=== PATIENT | male | born 1960 | race Caucasian/White ===

== ENCOUNTER 2018-01-09 21:16 | Observation (INO) | payer OTHER ==
[~2018-01-09] VITALS: Ht 157.5 cm; Wt 82.2 kg
[2018-01-09] MEDS ORDERED: OPTIRAY 320 IV PRN (22:00)
[2018-01-09 22:19] LABS: BASO % 0.2 %; BASO ABS # 0.02 K/uL (0-0.2); EOS % 0.2 %; EOS ABS # 0.03 K/uL (0-0.5); HEMATOCRIT 47.5 % (42-52); HEMOGLOBIN 16.5 g/dL (14.0-18.0); IG# 0.02 K/uL (0.00-0.02); LYMPH % 12.7 %; LYMPH ABS # 1.65 K/uL (1.2-3.4); MEAN CELL VOLUME 88.5 fL (80-100); MEAN CORPUSCULAR HEMOGLOBIN 30.7 pg (25-34); MEAN CORPUSCULAR HGB CONC 34.7 g/dl (32-36); MEAN PLATELET VOLUME 11.9 fL (7.4-10.4); MONO % 4.4 %; MONO ABS # 0.57 K/uL (0.11-0.59); NEUT % 82.3 %; NEUT ABS # 10.71 K/uL (1.4-6.5); PLATELET COUNT 155 K/uL (130-400)
[2018-01-09] MEDS ORDERED: SODIUM CHLORIDE 0.9% 1000ML 1,000 ML IV STA (22:33)
[2018-01-09] MEDS ORDERED: KETOROLAC TROMETHAMINE 30 MG/ML VIAL IV STA (22:33)
[2018-01-09 22:38] LABS: ALBUMIN 4.2 gm/dl (3.4-5.0); CREATININE 0.93 mg/dl (0.60-1.40); POTASSIUM 3.8 mmol/L (3.5-5.1); TOTAL PROTEIN 8.1 gm/dl (6.4-8.2)
[2018-01-09] MEDS ORDERED: CEFOXITIN SOD 2 GM VIAL IV STA (23:50)
[2018-01-10] VITALS (7 sets, daily range): BP systolic 109–124; BP diastolic 64–72; PULSE 54–76; TEMP 36.6–37.3; O2SAT 93–94; Ht 157.5 cm; Wt 82.2 kg
[2018-01-10] MEDS ORDERED: BUPIVACAINE 0.5 % 5 MG/1 ML PF 10ML VIAL ONE (00:08)
--- NOTE | 2018-01-10 00:15 | History and Physical ---
History & Physical Date & Time of Service: Jan 10, 2018 at 00:10 Chief Complaint: Severe Abd Pain Primary Care Physician: No Doctor, Assigned History of Present Illness 57-year-old male presented with abdominal pain. Pain started at around 1500 this afternoon is diffuse periumbilical pain. He left work a few hours later the pain was increasing. He did have some nausea but no vomiting. He attempted to have a bowel movement which did not relieve his symptoms. Denies any fevers. He pushed on his abdomen and felt tenderness in his right lower quadrant decided to go to the ER after consulting the computer. He has never had a colonoscopy. He smokes 1 pack a day. No other medical history. Past Medical/Surgical History Medical Problems: (1) Contusion of right foot (2) Hepatitis C Family History Father with prostate cancer. Denies family history of inflammatory bowel disease or colorectal cancer. Social History Smoking Status: Current Every Day Smoker (1 pack per day) Allergies Coded Allergies: No Known Allergies (Unverified , 10/12/15) Home Medications No Active Prescriptions or Reported Meds Review of Systems 10 point review of systems negative except as above Physical Exam Vital Signs Date Time Temp Pulse Resp B/P (MAP) Pulse Ox O2 Delivery O2 Flow Rate FiO2 01/09/18 23:14 68 18 139/88 98 Room Air 01/09/18 22:28 67 18 146/85 97 Room Air 01/09/18 21:20 36.7 73 18 143/85 94 Room Air General Appearance: WD/WN, no apparent distress Head: normocephalic, atraumatic Eyes: normal inspection, PERRL, EOMI ENT: normal ENT inspection, hearing grossly normal, TMs normal Neck: supple, no adenopathy, thyroid normal Respiratory/Chest: chest non-tender, lungs clear, normal breath sounds, no respiratory distress, no accessory muscle use Cardiovascular: regular rate, rhythm, no edema, no gallop, no JVD, no murmur, normal peripheral pulses Abdomen/GI: normal bowel sounds, soft, no organomegaly, no pulsatile mass, + tenderness (Tender to palpation in the right lower quadrant with localized guarding. No rebound.) Back: normal inspection, no CVA tenderness, no muscle spasm Extremities/Musculoskelatal: normal inspection, no calf tenderness, normal capillary refill, no pedal edema, normal range of motion Neurologic/Psych: early childhood director II-XII nml as tested, no motor/sensory deficits, alert, normal mood/affect, normal reflexes, oriented x 3 Skin: normal color, warm/dry, no rash Lymphatic: no adenopathy Diagnostics Laboratory Results Results Past 24 Hours Test 01/09/18 21:40 01/09/18 21:44 Range/Units Urine Color YELLOW Urine Appearance CLEAR CLEAR Urine pH 6.5 4.5-7.5 Urine Specific [place] 1.021 1.000-1.030 Urine Protein NEG NEG Urine Glucose (UA) NEG NEG Urine Ketones 1+ NEG Urine Occult Blood NEG NEG Urine Nitrite NEG NEG Urine Bilirubin NEG NEG Urine Urobilinogen NEG NEG Urine Leukocyte Esterase NEG NEG Urine WBC (Auto) 1-5 0-5 /hpf Urine RBC (Auto) 0-4 0-4 /hpf Urine Hyaline Casts (Auto) 1-5 0-5 /lpf Urine Epithelial Cells (Auto) 0-5 0-5 /lpf Urine Bacteria (Auto) NEG NEG White Blood Count 13.00 4.8-10.8 K/uL Red Blood Count 5.37 4.7-6.1 M/uL Hemoglobin 16.5 14.0-18.0 g/dL Hematocrit 47.5 42-52 % Mean Corpuscular Volume 88.5 80-100 fL Mean Corpuscular Hemoglobin 30.7 25-34 pg Mean Corpuscular Hemoglobin Concent 34.7 32-36 g/dl Platelet Count 155 130-400 K/uL Mean Platelet Volume 11.9 7.4-10.4 fL Neutrophils (%) (Auto) 82.3 % Lymphocytes (%) (Auto) 12.7 % Monocytes (%) (Auto) 4.4 % Eosinophils (%) (Auto) 0.2 % Basophils (%) (Auto) 0.2 % Neutrophils # (Auto) 10.71 1.4-6.5 K/uL Lymphocytes # (Auto) 1.65 1.2-3.4 K/uL Monocytes # (Auto) 0.57 0.11-0.59 K/uL Eosinophils # (Auto) 0.03 0-0.5 K/uL Basophils # (Auto) 0.02 0-0.2 K/uL RDW Standard Deviation 42.0 36.4-46.3 fL RDW Coefficient of Variation 13.0 11.5-14.5 % Immature Granulocyte % (Auto) 0.2 % Immature Granulocyte # (Auto) 0.02 0.00-0.02 K/uL Sodium Level 137 136-145 mmol/L Potassium Level 3.8 3.5-5.1 mmol/L Chloride Level 104 98-107 mmol/L Carbon Dioxide Level 24 21-32 mmol/L Anion Gap 9.0 3-11 mmol/L Blood Urea Nitrogen 11 7-18 mg/dl Creatinine 0.93 0.60-1.40 mg/dl Est Creatinine Clear Calc Drug Dose 82.4 ml/min Estimated GFR () 106.0 Estimated GFR (Non- 91.4 BUN/Creatinine Ratio 12.3 10-20 Random Glucose 120 70-99 mg/dl Calcium Level 9.0 8.5-10.1 mg/dl Total Bilirubin 0.5 0.2-1 mg/dl Direct Bilirubin 0.1 0-0.2 mg/dl Aspartate Amino Transf (AST/SGOT) 44 15-37 U/L Alanine Aminotransferase (ALT/SGPT) 80 12-78 U/L Alkaline Phosphatase 80 45-117 U/L Total Protein 8.1 6.4-8.2 gm/dl Albumin 4.2 3.4-5.0 gm/dl Lipase 375 73-393 U/L Diagnostic Radiology CT scan shows acute nonperforated appendicitis with 1 cm appendix Impression Assessment and Plan (1) Acute appendicitis with localized peritonitis 57-year-old male with acute appendicitis plan for laparoscopic appendectomy Risks discussed to include but not limited to bleeding, infection, normal appendix, conversion to open, damage to surrounding structures, need for future more extensive surgery, and the risks of anesthesia Mefoxin 2 g IV preop Admit to [facility] floor for observation postop Diagnosis, details surgery and recovery, and plan of care discussed the patient , all questions were answered, the patient expressed understanding agrees the plan of care as stated ASA Classification: ASA Class II Resuscitation Status VTE Prophylaxis Will order VTE Prophylaxis: Yes
[2018-01-10] MEDS ORDERED: FENTANYL CITRATE INJ 50 MCG/1 ML 2 ML VIAL ONE (00:54)
[2018-01-10] MEDS ORDERED: MIDAZOLAM HCL 1 MG/ML 2ML VIAL ONE (00:54)
--- NOTE | 2018-01-10 01:15 | EMERGENCY ROOM VISIT NOTE ---
History Report prepared by Blakeibsylvain: Lucy Arellano Under the Supervision of: Dr. Suhail Chadwick D.O. First contact with patient: 21:31 Chief Complaint: ABDOMINAL PAIN Stated Complaint: SEVERE ABD PAIN History of Present Illness The patient is a 57 year old male who presents to the Emergency Room with complaints of constant abdominal pain beginning 6.5 hours ago. He notes he experiences a sharp pain when pressing on his abdomen. The patient states his abdomen is bloated, and notes he vomited twice, which relieved his pain slightly. He denies pain or burning with urination, cough, or runny nose. The patient reports nothing except vomiting relieves his pain. He states his last bowel movement was this evening, but it "wasn't right." The patient denies a history of abdominal surgeries. Source of History: patient Onset: 6.5 hours ago Position: abdomen Quality: other (sharp) Timing: constant Modifying Factors (Relieving): other (vomiting) Associated Symptoms: + vomiting (twice), No cough, No urinary symptoms Note: Associated symptom: abdomen bloating. Denies: runny nose Review of Systems See HPI for pertinent positives & negatives. A total of 10 systems reviewed and were otherwise negative. Past Medical & Surgical Medical Problems: (1) Acute appendicitis with localized peritonitis (2) Hepatitis C Contusion of right foot Family History No pertinent family history stated. Social History Smoking Status: Current Every Day Smoker Current/Historical Medications No Active Prescriptions or Reported Meds Allergies Coded Allergies: No Known Allergies (Unverified , 10/12/15) Physical Exam Vital Signs Date Time Temp Pulse Resp B/P (MAP) Pulse Ox O2 Delivery O2 Flow Rate FiO2 01/10/18 00:44 68 18 134/79 95 01/10/18 00:41 68 18 134/79 95 Room Air 01/09/18 23:14 68 18 139/88 98 Room Air 01/09/18 22:28 67 18 146/85 97 Room Air 01/09/18 21:20 36.7 73 18 143/85 94 Room Air Physical Exam GENERAL: Sitting up in bed, alert, well appearing, well nourished, no distress, non-toxic EYE EXAM: normal conjunctiva. OROPHARYNX: no exudate, no erythema, lips, buccal mucosa, and tongue normal and mucous membranes are moist NECK: supple, no nuchal rigidity, no adenopathy, non-tender LUNGS: Clear to auscultation. Normal chest wall mechanics HEART: no murmurs, S1 normal and S2 normal ABDOMEN: abdomen soft, normo-active bowel sounds, no masses, no rebound or guarding. Tender to palpation infraumbilically. BACK: Back is symmetrical on inspection and there is no deformity, no midline tenderness, no CVA tenderness. SKIN: no rashes and no bruising UPPER EXTREMITIES: upper extremities are grossly normal. LOWER EXTREMITIES: No pitting edema. : Normal external genitalia, testicles nontender. NEURO EXAM: Normal sensorium, cranial nerves II-XII grossly intact, normal speech, no gross weakness of arms, no gross weakness of legs. Medical Decision & Procedures ER Provider Diagnostic Interpretation: Radiology results as stated below per my review: ABDOMEN/PELVIS W/IV Contrast Acute appendicitis Laboratory Results 01/09/18 21:44 Red Blood Count 5.37, Mean Corpuscular Volume 88.5, Mean Corpuscular Hemoglobin 30.7, Mean Corpuscular Hemoglobin Concent 34.7, Mean Platelet Volume 11.9, Neutrophils (%) (Auto) 82.3, Lymphocytes (%) (Auto) 12.7, Monocytes (%) (Auto) 4.4, Eosinophils (%) (Auto) 0.2, Basophils (%) (Auto) 0.2, Neutrophils # (Auto) 10.71, Lymphocytes # (Auto) 1.65, Monocytes # (Auto) 0.57, Eosinophils # (Auto) 0.03, Basophils # (Auto) 0.02 01/09/18 21:44 Test 01/09/18 21:40 01/09/18 21:44 Urine Color YELLOW Urine Appearance CLEAR (CLEAR) Urine pH 6.5 (4.5-7.5) Urine Specific [place] 1.021 (1.000-1.030) Urine Protein NEG (NEG) Urine Glucose (UA) NEG (NEG) Urine Ketones 1+ (NEG) Urine Occult Blood NEG (NEG) Urine Nitrite NEG (NEG) Urine Bilirubin NEG (NEG) Urine Urobilinogen NEG (NEG) Urine Leukocyte Esterase NEG (NEG) Urine WBC (Auto) 1-5 /hpf (0-5) Urine RBC (Auto) 0-4 /hpf (0-4) Urine Hyaline Casts (Auto) 1-5 /lpf (0-5) Urine Epithelial Cells (Auto) 0-5 /lpf (0-5) Urine Bacteria (Auto) NEG (NEG) White Blood Count 13.00 K/uL (4.8-10.8) Red Blood Count 5.37 M/uL (4.7-6.1) Hemoglobin 16.5 g/dL (14.0-18.0) Hematocrit 47.5 % (42-52) Mean Corpuscular Volume 88.5 fL (80-100) Mean Corpuscular Hemoglobin 30.7 pg (25-34) Mean Corpuscular Hemoglobin Concent 34.7 g/dl (32-36) Platelet Count 155 K/uL (130-400) Mean Platelet Volume 11.9 fL (7.4-10.4) Neutrophils (%) (Auto) 82.3 % Lymphocytes (%) (Auto) 12.7 % Monocytes (%) (Auto) 4.4 % Eosinophils (%) (Auto) 0.2 % Basophils (%) (Auto) 0.2 % Neutrophils # (Auto) 10.71 K/uL (1.4-6.5) Lymphocytes # (Auto) 1.65 K/uL (1.2-3.4) Monocytes # (Auto) 0.57 K/uL (0.11-0.59) Eosinophils # (Auto) 0.03 K/uL (0-0.5) Basophils # (Auto) 0.02 K/uL (0-0.2) RDW Standard Deviation 42.0 fL (36.4-46.3) RDW Coefficient of Variation 13.0 % (11.5-14.5) Immature Granulocyte % (Auto) 0.2 % Immature Granulocyte # (Auto) 0.02 K/uL (0.00-0.02) Anion Gap 9.0 mmol/L (3-11) Est Creatinine Clear Calc Drug Dose 82.4 ml/min Estimated GFR () 106.0 Estimated GFR (Non- 91.4 BUN/Creatinine Ratio 12.3 (10-20) Calcium Level 9.0 mg/dl (8.5-10.1) Total Bilirubin 0.5 mg/dl (0.2-1) Direct Bilirubin 0.1 mg/dl (0-0.2) Aspartate Amino Transf (AST/SGOT) 44 U/L (15-37) Alanine Aminotransferase (ALT/SGPT) 80 U/L (12-78) Alkaline Phosphatase 80 U/L (45-117) Total Protein 8.1 gm/dl (6.4-8.2) Albumin 4.2 gm/dl (3.4-5.0) Lipase 375 U/L (73-393) Laboratory results per my review. Medications Administered Medications (Trade) Dose Ordered Sig/Ivanna Route Start Time Stop Time Status Last Admin Dose Admin Sodium Chloride 1,000 ml @ 999 mls/hr Q1H1M STAT IV 01/09/18 22:33 01/09/18 23:33 DC 01/09/18 23:15 999 MLS/HR Ketorolac Tromethamine (Toradol Inj) 30 mg NOW STAT IV 01/09/18 22:33 01/09/18 22:34 DC 01/09/18 23:14 30 MG Cefoxitin Sodium (Mefoxin IV) 2,000 mg NOW STAT IV 01/09/18 23:50 01/09/18 23:52 DC 01/09/18 23:57 2,000 MG ED Course ED COURSE: Vital signs were reviewed and showed situational hypertension. The patients medical record was reviewed The above diagnostic studies were performed and reviewed. ED treatments and interventions as stated above. 2137: The patient was evaluated in room A2. A complete history and physical examination was performed. 2233: Ordered Toradol Inj 30 mg IV, Sodium Chloride 1000 ml @ 999 mls/hr IV, Cefoxtin Sodium 2000 mg IV. 2345: I reviewed the patient's case with Dr. Vizcarra, [facility] surgeon. He will evaluate the patient for further management. 2351: Upon reevaluation, the patient is resting. I discussed my findings with the patient and he understands and agrees with the treatment plan. Based on the patients age, coexisting illnesses, exam and lab findings the decision to treat as an inpatient was made. The patient remained stable while under my care. The patient will be evaluated for further management. Medical Decision Differential diagnoses includes but is not limited to gastritis, peptic ulcer disease, GERD, gallbladder disease, pancreatitis, small bowel obstruction, acute coronary syndrome, pericarditis, ischemic bowel, irritable bowel disease, irritable bowel syndrome, appendicitis, diverticulitis, malignancy, hernia, urinary tract infection, torsion, perforation, trauma, infectious. Patient is a 57-year-old male who presents to ER for infraumbilical abdominal pain. He is minimally tender on exam. Labs show a mild leukocytosis of 13, 000. BMP along with LFTs, bilirubin lipase is unremarkable. UA was negative. CT shows acute appendicitis. Discussed with general surgery. Patient was given IV antibiotics and fluids. He was admitted to general surgery for acute appendicitis. He was also given IV Toradol. Medication Reconcilliation Current Medication List: was personally reviewed by me Blood Pressure Screening Patient's blood pressure: Elevated blood pressure Blood pressure disposition: Did not require urgent referral Consults Time Called: 2343 Consulting Physician: Dr. Vizcarra, [facility] surgeon Returned Call: 2 I reviewed the patient's case with Dr. Vizcarra, [facility] surgeon. He will evaluate the patient for further management. Impression Primary Impression: Acute appendicitis Scribe Attestation The scribe's documentation has been prepared under my direction and personally reviewed by me in its entirety. I confirm that the note above accurately reflects all work, treatment, procedures, and medical decision making performed by me. Departure Information Dispostion Being Evaluated By Surgeon Prescriptions No Active Prescriptions or Reported Meds Referrals No Doctor, Assigned (PCP) Patient Instructions My [facility] Problem Qualifiers Primary Impression: Acute appendicitis Acute appendicitis type: with localized peritonitis Qualified Codes: K35.3 - Acute appendicitis with localized peritonitis
[2018-01-10] MEDS ORDERED: ONDANSETRON INJ 2 MG/ML 2 ML VIAL IV PRN ×2 (01:45→02:45)
[2018-01-10] MEDS ORDERED: ATROPINE SULFATE 0.1 MG/ML 5ML SYR IV PRN (01:45)
[2018-01-10] MEDS ORDERED: HYDROmorphone INJ 1 MG/ML SYR IV PRN (01:45)
[2018-01-10] MEDS ORDERED: EpHEDrine SULFATE INJ 50 MG/ML AMP IV PRN (01:45)
[2018-01-10] MEDS ORDERED: FENTANYL CITRATE INJ 50 MCG/1 ML 2 ML VIAL IV PRN (01:45)
[2018-01-10] MEDS ORDERED: ONDANSETRON INJ 2 MG/ML 2 ML VIAL ONE (02:18)
[2018-01-10] MEDS ORDERED: DEXAMETHASONE SOD INJ 4 MG/ML VIAL ONE (02:18)
[2018-01-10] MEDS ORDERED: PROPOFOL IV EMULSION 10 MG/ML 20 ML VIAL ONE (02:19)
[2018-01-10] MEDS ORDERED: ALBUTEROL HFA INHALER 8.5 GM INH ONE (02:19)
[2018-01-10] MEDS ORDERED: GLYCOPYRROLATE INJ 0.2 MG/ML VIAL ONE (02:19)
[2018-01-10] MEDS ORDERED: NEOSTIGMINE METHYLSULFATE 5 MG/5 ML SYR ONE (02:19)
[2018-01-10] MEDS ORDERED: ROCURONIUM BROMIDE 10 MG/ML 5 ML VIAL ONE (02:19)
[2018-01-10] MEDS ORDERED: SUCCINYLCHOLINE CHLORIDE 20 MG/ML 10 ML VIAL IV ONE (02:19)
--- NOTE | 2018-01-10 02:36 | [facility] Post Operative Brief Note ---
Immediate Operative Summary Operative Date Jan 10, 2018. Pre-Operative Diagnosis Acute appendicitis Post-Operative Diagnosis Same Procedure(s) Performed Laparoscopic appendectomy Surgeon Dr Vizcarra Well Digger Surgeon(s) Max Quarles PA-C Estimated Blood Loss 3ML Findings Consistent with Post-Op Diagnosis Acute, nonperforated appendicitis Specimens A. appendix Drains None Anesthesia Type General Complication(s) none Disposition Accompanied Pt To Recover: no Disposition: Recovery Room / PACU
--- NOTE | 2018-01-10 02:38 | [facility] Operative Report ---
Operative Report Operative Date Jan 10, 2018. Pre-Operative Diagnosis Acute appendicitis Post-Operative Diagnosis Same Procedure(s) Performed Laparoscopic appendectomy Surgeon Dr Vizcarra Quality Analyst/Technical Writer Surgeon(s) Max Quarles PA-C Estimated Blood Loss 3ML Findings Acute, nonperforated appendicitis Specimens A. appendix Drains None Anesthesia General Complication(s) None Disposition Recovery Room / PACU Indications 57-year-old male with signs and symptoms of acute appendicitis confirmed by CT scan, plan for laparoscopic appendectomy. The risks of the procedure were discussed, all questions were answered, and the patient agreed to proceed with surgery as planned. Description of Procedure The patient was properly identified, consented, and taken to the operating room where he was placed in the supine position. General endotracheal anesthesia was induced. SCDs and a safety belt were placed. Preoperative antibiotics were administered. A Weeks catheter was not placed. The patient's abdomen was prepped and draped in the standard sterile fashion. Surgical timeout was performed and all parties were in agreement that this was the correct patient and procedure to be performed and we continued as planned. A curvilinear infraumbilical incision was made with electrocautery and deepened down to the fascia with blunt dissection. The base of the umbilicus was grasped with a Rojelio and elevated towards the ceiling. An incision was made in the midline fascia with a knife and entry into the peritoneum was confirmed. Stay suture of 0 Vicryl was placed and a Javier trocar was inserted. The abdomen was insufflated with carbon dioxide which the patient tolerated without incident. The laparoscope was inserted and no damage from initial trocar placement was noted, no gross abnormalities were noted within the 4 quadrants the abdomen. 5 mm ports were then placed in the left lower quadrant with care not to damage the epigastric vessels, and in the suprapubic midline with care not to damage the bladder. The patient was placed in Trendelenburg position and rotated towards the left. The small bowel was swept away from the right lower quadrant. The cecum was grasped with an atraumatic grasper exposing the appendix. The appendix was mildly inflamed and very dilated but there was no evidence of perforation. There was no fluid in the pelvis. A window was created between the base of the appendix and the mesoappendix. A jaeger loaded endoscopic stapler was then used to divide the appendix at its base. A jaeger load was then used to divide the mesoappendix. Hemostasis was good. The appendix was placed in an Endo Catch bag and removed through the umbilical port site. The right lower quadrant and pelvis was irrigated and hemostasis was found to be good. 5 mm trochars were removed under direct visualization and the abdomen was allowed to collapse. The umbilical port site fascia was closed with 0 Vicryl suture. The wound was irrigated, and the skin of all ports was closed with 4-0 Monocryl subcuticular sutures. Dermabond was placed over the wounds. The patient was extubated in the operating room and taken to the PACU where he recovered without apparent incident. All sponge, instrument and needle counts were correct at the conclusion of the procedure. The patient tolerated the procedure well. The physician's marketing operations assistant was present and scrubbed for the entire to the case. He was critical in positioning the patient, prepping and draping, retraction and exposure, driving the laparoscope, closure the incisions, and placement of the dressings. I attest to the content of the Intraoperative Record and any orders documented therein. Any exceptions are noted below.
[2018-01-10] MEDS ORDERED: ACETAMINOPHEN 325 MG TAB PO PRN (02:45)
[2018-01-10] MEDS ORDERED: MoRPHine SULFATE 4 MG/ML 1 ML CARP\\VIAL IV PRN (02:45)
[2018-01-10] MEDS ORDERED: OXYCODONE/ACETAMINOPHEN 5-325 TAB PO PRN ×2 (02:45)
[2018-01-10] MEDS ORDERED: MoRPHine SULFATE 2 MG/ML CARP IV PRN (02:45)
--- NOTE | 2018-01-10 03:12 | Anesthesiology Progress Note ---
Anesthesia Post Op Note Date & Time Jan 10, 2018 at 03:12 Vital Signs Pain Intensity: 5.0 Vital Signs Past 12 Hours Date Time Temp Pulse Resp B/P (MAP) Pulse Ox O2 Delivery O2 Flow Rate FiO2 01/10/18 00:44 68 18 134/79 95 01/10/18 00:41 68 18 134/79 95 Room Air 01/09/18 23:14 68 18 139/88 98 Room Air 01/09/18 22:28 67 18 146/85 97 Room Air 01/09/18 21:20 36.7 73 18 143/85 94 Room Air Notes Mental Status: alert / awake / arousable, participated in evaluation Pt Amnestic to Procedure: Yes Nausea / Vomiting: adequately controlled Pain: adequately controlled Airway Patency, RR, SpO2: stable & adequate BP & HR: stable & adequate Hydration State: stable & adequate Anesthetic Complications: no major complications apparent
[2018-01-10] MEDS ORDERED: IV FLUIDS COMPLETED PRN (04:30)
[2018-01-10] MEDS ORDERED: KETOROLAC TROMETHAMINE 15 MG/ML VIAL IV. SCH (06:00)
[2018-01-10] MEDS ORDERED: CEFOXITIN IV 2,000 MG in DEXTROSE 5% 50ML 50 ML IV SCH (06:00)
--- NOTE | 2018-01-10 06:36 | DIAGNOSTIC IMAGING REPORT ---
ABD/PELVIS IV CONTRAST ONLY CT DOSE: 608.57 mGy.cm HISTORY: Pain rlq abd pain TECHNIQUE: Multiaxial CT images of the abdomen and pelvis were performed following the use of intravenous contrast. A dose lowering technique was utilized adhering to the principles of ALARA. COMPARISON STUDY: None. FINDINGS: Lung bases are clear. There are 2 right renal cyst. The kidneys are negative for hydronephrosis. Bowel pattern is nonobstructive. The appendix is distended and contains an appendicolith. Maximum diameter is 1 cm. Appendicolith measures 6 mm at maximum. No evidence for abscess collection or obstruction. Mild chronic sigmoid diverticulosis. IMPRESSION: 1. Acute appendicitis. 2. Appendiceal diameter is 1 cm with a 6 mm appendicolith. 3. No evidence for abscess collection or obstruction. 4. Chronic sigmoid diverticulosis. The above report was generated using voice recognition software. It may contain grammatical, syntax or spelling errors. Electronically signed by: Vijay Oseguera M.D. 01/10/2018 6:35 AM Dictated Date/Time: 01/10/2018 6:31 AM
[2018-01-10] MEDS ORDERED: OXYC-57 PO (07:31)
--- NOTE | 2018-01-10 07:34 | Discharge Instructions ---
Discharge Instructions Date of Service Jan 10, 2018. Admission Reason for Admission: Acute Appendicitis With Localized Peritonitis Discharge Discharge Diagnosis / Problem: Acute Appendicitis with Localized Peritonitis Discharge Goals Goal(s): Decrease discomfort, Improve function Activity Recommendations Activity Limitations: as noted below Lifting Limitations: no more than 10 pounds Exercise/Sports Limitations: until after follow-up appointment May Resume Sexual Activity: after follow-up appointment Shower/Bathe: no limitations Driving or Machine Use: resume 1 day after discharge . Instructions / Follow-Up Instructions / Follow-Up You may shower, but please do not soak or scrub your incisions. Please follow-up with Dr. Vizcarra in the General Surgery Clinic located at [address] [place], [place] [address] [address] in 1-2 weeks. Please call the clinic at [phone] to schedule this appointment. Please call the clinic with any questions or concerns. Current Hospital Diet Patient's current hospital diet: Clear Liquid Diet Discharge Diet Recommended Diet: Regular Diet Procedures Procedures Performed: Laparoscopic appendectomy Pending Studies Studies pending at discharge: yes List of pending studies: Pathology report. Medical Emergencies . Who to Call and When: Medical Emergencies: If at any time you feel your situation is an emergency, please call 911 immediately. . Non-Emergent Contact Non-Emergency issues call your: Primary Care Provider, Surgeon Call Non-Emergent contact if: temperature is above 101.5, your pain is not controlled, wound has increased drainage, wound has increased redness . "Provider Documentation" section prepared by Liberty Harrison. .
--- NOTE | 2018-01-10 08:21 | Surgery Progress Note ---
Surgery Progress Note Date of Service Jan 10, 2018. Subjective Post OP Day: 1 + feeling well, + ambulating, + pain controlled, No bowel movement, No flatus, No nausea, No vomiting Doing well, "Hungry" Objective Vital Signs: Date Time Temp Pulse Resp B/P (MAP) Pulse Ox O2 Delivery O2 Flow Rate FiO2 01/10/18 08:01 36.7 63 20 124/64 (84) 94 Room Air 01/10/18 05:50 37.3 76 18 117/66 (83) 93 Room Air 01/10/18 04:52 36.7 66 16 116/68 (84) 94 Room Air 01/10/18 04:20 36.6 54 15 117/70 (86) 94 Room Air 01/10/18 03:50 36.6 56 15 109/69 (82) 93 Room Air 01/10/18 03:50 94 Room Air 01/10/18 03:50 36.8 67 16 122/72 Room Air 94 01/10/18 03:40 66 20 124/67 96 Room Air Oxymask 01/10/18 03:35 36.8 60 20 113/79 94 Room Air Oxymask 01/10/18 03:30 60 20 116/67 96 Room Air Oxymask 01/10/18 03:25 66 16 124/70 96 Oxymask 4 01/10/18 03:20 37.1 60 16 111/71 97 Oxymask 4 01/10/18 03:15 65 16 117/68 94 Oxymask 6 01/10/18 03:10 71 16 119/67 96 Oxymask 8 01/10/18 03:05 96 16 135/79 98 Oxymask 8 01/10/18 03:00 91 16 125/75 98 Oxymask 10 01/10/18 02:57 36.9 16 137/85 100 Oxymask 10 01/10/18 00:44 68 18 134/79 95 01/10/18 00:41 68 18 134/79 95 Room Air 01/09/18 23:14 68 18 139/88 98 Room Air 01/09/18 22:28 67 18 146/85 97 Room Air 01/09/18 21:20 36.7 73 18 143/85 94 Room Air General Appearance: WD/WN, no apparent distress Head: normocephalic, atraumatic Abdomen: non distended, soft, + pertinent finding (3 incisions with dermabond in place- clean, dry, intact. ) Laboratory Results: Results Past 24 Hours Test 01/09/18 21:40 01/09/18 21:44 Range/Units Urine Color YELLOW Urine Appearance CLEAR CLEAR Urine pH 6.5 4.5-7.5 Urine Specific [place] 1.021 1.000-1.030 Urine Protein NEG NEG Urine Glucose (UA) NEG NEG Urine Ketones 1+ NEG Urine Occult Blood NEG NEG Urine Nitrite NEG NEG Urine Bilirubin NEG NEG Urine Urobilinogen NEG NEG Urine Leukocyte Esterase NEG NEG Urine WBC (Auto) 1-5 0-5 /hpf Urine RBC (Auto) 0-4 0-4 /hpf Urine Hyaline Casts (Auto) 1-5 0-5 /lpf Urine Epithelial Cells (Auto) 0-5 0-5 /lpf Urine Bacteria (Auto) NEG NEG White Blood Count 13.00 4.8-10.8 K/uL Red Blood Count 5.37 4.7-6.1 M/uL Hemoglobin 16.5 14.0-18.0 g/dL Hematocrit 47.5 42-52 % Mean Corpuscular Volume 88.5 80-100 fL Mean Corpuscular Hemoglobin 30.7 25-34 pg Mean Corpuscular Hemoglobin Concent 34.7 32-36 g/dl Platelet Count 155 130-400 K/uL Mean Platelet Volume 11.9 7.4-10.4 fL Neutrophils (%) (Auto) 82.3 % Lymphocytes (%) (Auto) 12.7 % Monocytes (%) (Auto) 4.4 % Eosinophils (%) (Auto) 0.2 % Basophils (%) (Auto) 0.2 % Neutrophils # (Auto) 10.71 1.4-6.5 K/uL Lymphocytes # (Auto) 1.65 1.2-3.4 K/uL Monocytes # (Auto) 0.57 0.11-0.59 K/uL Eosinophils # (Auto) 0.03 0-0.5 K/uL Basophils # (Auto) 0.02 0-0.2 K/uL RDW Standard Deviation 42.0 36.4-46.3 fL RDW Coefficient of Variation 13.0 11.5-14.5 % Immature Granulocyte % (Auto) 0.2 % Immature Granulocyte # (Auto) 0.02 0.00-0.02 K/uL Sodium Level 137 136-145 mmol/L Potassium Level 3.8 3.5-5.1 mmol/L Chloride Level 104 98-107 mmol/L Carbon Dioxide Level 24 21-32 mmol/L Anion Gap 9.0 3-11 mmol/L Blood Urea Nitrogen 11 7-18 mg/dl Creatinine 0.93 0.60-1.40 mg/dl Est Creatinine Clear Calc Drug Dose 82.4 ml/min Estimated GFR () 106.0 Estimated GFR (Non- 91.4 BUN/Creatinine Ratio 12.3 10-20 Random Glucose 120 70-99 mg/dl Calcium Level 9.0 8.5-10.1 mg/dl Total Bilirubin 0.5 0.2-1 mg/dl Direct Bilirubin 0.1 0-0.2 mg/dl Aspartate Amino Transf (AST/SGOT) 44 15-37 U/L Alanine Aminotransferase (ALT/SGPT) 80 12-78 U/L Alkaline Phosphatase 80 45-117 U/L Total Protein 8.1 6.4-8.2 gm/dl Albumin 4.2 3.4-5.0 gm/dl Lipase 375 73-393 U/L Assessment & Plan POD #1 S/P Lap Appendectomy wit Dr. Vizcarra. Patient doing well this AM- pain controlled, denies nausea or vomiting. Tolerated clear diet overnight and hungry for regular food. Will advance diet and see how he tolerates. Ok for discharge later this AM if he tolerates breakfast. Return precautions given. Patient to follow-up in Gen Surg clinic in 1 week.
--- NOTE | 2018-01-13 00:26 | Discharge Summary ---
Discharge Summary Date of Service Jan 13, 2018. Admission Date/Reason Jan 10, 2018 at 02:42 Acute Appendicitis With Localized Peritonitis. Discharge Date/Disposition Jan 10, 2018 Home Diagnosis Principal Diagnosis: Acute Appendicitis Procedure(s) Performed Laparoscopic appendectomy Medication Reconciliation Percocet 5mg/325mg 1-2 Tablets PO Q6H PRN for pain x 3 days. Disp: 24 Tablets. Admission Physical Exam As per Admitting History & Physical. Hospital Course 01/10/18: Patient presented early this morning due to RLQ and periumbilical pain starting earlier in the afternoon. Reported associated nausea but no vomiting. WBC 13k. CT showed findings significant for acute appendicitis. At this time it was decided to take patient to the OR for laparoscopic appendectomy, possible open. Pre-op antibiotics given, consents signed. The procedure was performed successfully with a laparoscopic approach without complications. The patient was taken to the ICU for post-op recovery and then admitted to med/surg on observation for post-op care. Patient was discharged later this afternoon once his pain was controlled, he was urinating and he was tolerating a diet. Return precautions given. Patient given instructions on wound care and limitations. He was given a prescription for percocet to take as needed for pain relief. Patient will follow-up with Dr. Vizcarra in the general surgery clinic in 1-2 weeks. Patient invited to contact our office with any questions or concerns. Discharge Instructions Please refer to the electronic Patient Visit Report (Discharge Instructions) for additional information.
== END 2018-01-10 10:40 | disposition home or self-care (01) ==
LOC: C.EDB 21:18 → C.MSN 01-10 02:42 → ENRESERV 01-10 03:18
PROVIDERS: ADMIT Surgery; ATTEND Surgery
DX: K35.3 Acute appendicitis with localized peritonitis (principal); F17.200 Nicotine dependence, unspecified, uncomplicated

== ENCOUNTER 2022-01-14 11:26 | Inpatient (IN) ==
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
[2022-01-14 12:27] LABS: Appearance Urine Clear (Clear); Bacteria Urine Automated Negative (Negative); Bilirubin Urine Negative (Negative); Blood Urine Trace (Negative); Cast Urine Automated 0 /lpf (0-5); Color Urine Yellow; Glucose Urine UA Negative (Negative); Ketones Urine Negative (Negative); Leukocyte Esterase Urine 2+ (Negative); Nitrite Urine Negative (Negative); Protein Urine Negative (Negative); RBC Urine Automated 0-4 /hpf (0-4); Specific Gravity Urine 1.016 (1.000-1.030); Urobilinogen Urine Negative (Negative); WBC Urine Automated >30 /hpf (0-5); pH Urine 5.5 (4.5-7.5)
[2022-01-14 12:32] LABS: Basophils # (auto) 0.05 K/uL (0-0.2); Basophils % (auto) 0.3 %; Eosinophils # (auto) 0.03 K/uL (0-0.50); Eosinophils % (auto) 0.2 %; Hematocrit (blood only) 47.1 % (40.1-51.0); Hemoglobin 16.1 g/dl (14.0-18.0); Immature Granulocytes # (auto) 0.06 K/uL (0.00-0.02); Immature Granulocytes % (auto) 0.3 %; Lymphocytes # (auto) 1.51 K/uL (1.2-3.4); Lymphocytes % (auto) 8.8 %; Mean Corpuscular Hgb Conc 34.2 g/dL (32.0-36.0); Mean Corpuscular Volume 87.9 fL (80.0-100.0); Mean Platelet Volume 10.9 fL (9.4-12.4); Monocytes # (auto) 1.05 K/uL (0.24-0.82); Monocytes % (auto) 6.1 %; Neutrophils # (auto) 14.53 K/uL (1.4-6.5); Neutrophils % (auto) 84.3 %; Platelet Count 249 K/uL (130-400); RDW Coefficient of Variation 12.3 % (11.5-14.5); RDW Standard Deviation 39.9 fL (36.4-46.3); Red Blood Count 5.36 M/uL (4.63-6.08); White Blood Count 17.23 K/ul (4.8-10.8)
[2022-01-14 12:47] LABS: Albumin Globulin Ratio 1.2 (0.9-2); Albumin Level 4.3 gm/dl (3.4-5.0); BUN Creatinine Ratio 12.8 (10-20); Bilirubin,Total 0.7 mg/dl (0.2-1.0); Calcium 9.4 mg/dl (8.5-10.1); Creatinine Clr Calc Pharmacy 88.6 ml/min; Est GFR (African American) 101.7 ml/min; Est GFR (Non-African American) 87.8 ml/min; Globulin 3.7 gm/dl (2.5-4.0); Potassium 4.3 mmol/L (3.5-5.1)
[2022-01-14] MEDS ORDERED: SODIUM CHLORIDE 0.9% 1000ML 1,000 ML IV ONE (13:11)
[2022-01-14] MEDS ORDERED: ACETAMINOPHEN 325 MG TAB PO STA (13:11)
[2022-01-14] MEDS ORDERED: cefTRIAXone SODIUM 2,000 MG/70 ML BAG IV STA (13:11)
--- NOTE | 2022-01-14 13:17 | Emergency Department Note ---
History of Present Illness General Chief complaint: Elbow Injury/Pain Stated complaint: SWOLLEN ELBOW Time Seen by Provider: 01/14/22 12:58 Source: patient Mode of arrival: ambulatory Limitations: no limitations History of Present Illness Maximum Pain Intensity: 5 This patient is a 61-year-old male who comes in after having fever and flulike symptoms achiness. He says his elbows have been swelling for over a year the right greater than left for the last 2 weeks he has had a fever off and on for a week he has some urinary discomfort he is a chronic cough which is unchanged he has been self medicated with doxycycline 100 mg she took it twice a day for 1 day then it has been taken once a day. He has had no rash or known tick bites. No abdominal pain minimal headache today no neck pain or stiffness no sore throat no sick contacts no lower extremity pain or swelling. No abdominal or back pain. Home Medications Medication Instructions Recorded Confirmed Type No Known Home Medications 01/14/22 01/14/22 History Allergies Allergy/AdvReac Type Severity Reaction Status Date / Time No Known Allergies Allergy Verified 01/14/22 15:31 Past Med/Surg History Medical History (Updated 01/14/22 @ 19:37 by Max Lopez MD) Hepatitis C Surgical History (Updated 01/14/22 @ 16:21 by Emilie Mccrary PA-C) History of appendectomy Family History (Updated 01/14/22 @ 16:30 by Emilie Mccrary PA-C) Father Prostate cancer Mother Alive and well Social History (Updated 01/14/22 @ 16:22 by Emilie Mccrary PA-C) Smoking Status: Current every day smoker packs per day: 1; Years Smoked: 45; Hx Alcohol Use: Yes Alcohol Intake Frequency: Monthly or Less Alcohol Intake Frequency Comment: very in frequent, few times a year Hx Substance Use: No Preferred Language: [place] Feels Safe at Home: Yes Immunizations: Past medical historyhe takes no regular medications he has a history of hepatitis C in the 70s. Denies diabetes. Social history he smokes 1 pack/day. Does not drink alcohol except for very rarely. Denies drug use except for occasional marijuana Review of Systems A total of 10 systems reviewed and were otherwise negative Physical Exam Vital Signs Vital Signs - 24 hr 01/14/22 11:56 01/14/22 13:00 01/14/22 15:44 Temperature 38.4 C H 38.4 C H Temperature Source Temporal Artery Scan Oral Pulse Rate 99 H Pulse Rate [Finger] 87 85 Pulse Rhythm Regular Pulse Strength Normal Respiratory Rate 18 18 20 Respiratory Effort / Characteristics Non-Labored Spontaneous Non-Labored Non-Labored Respiratory Depth Normal Normal Normal Respiratory Pattern Regular Blood Pressure 145/66 H Blood Pressure [Right Arm] 137/73 124/61 Blood Pressure Mean 92 Blood Pressure Mean [Right Arm] 94 82 Blood Pressure Position Sitting Pulse Oximetry 96 95 93 Oxygen Delivery Method Room Air Room Air Room Air Sepsis Recent Fever Within 48 Hours Yes Sepsis New/Unexplained Change in Mental Status No Sepsis Action Taken by Nursing No Action Required General: Well developed well nourished older male who appears in no acute distress, breathing comfortably on room air. Normal speech HEENT: Normal cephalic atraumatic. Pupils are equal round and reactive to light. Extraocular movements are intact. Oropharynx is pink with moist mucous membranes. No swelling of the mouth lips or tongue. Neck: Supple with a midline trachea. No meningeal signs or stiffness, no JVD or bruits. No Stridor. Chest: Clear to auscultation bilaterally. No wheezes or rhonchi. No increased work of breathing. Heart: Regular rate and rhythm without murmurs or gallops. Abdomen: Soft nontender, nondistended without rebound guarding or rigidity. Extremities: No cyanosis clubbing or edema. No calf tenderness or assymetry. He has some mild swelling of the olecranon process bilaterally right greater than left but neither are red or warm there is no overt cellulitis or fluctuance or even tenderness Spine/Back. Non tender to palpation. No CVA tenderness Skin: Good turgor without rashes. Neurologic exam: Cranial nerves two through 12 are intact. Motor and sensation are intact and symmetrical throughout. Course Administered Medications Vancomycin HCl 2,000 mg/ (Sodium Chloride) 540 mls @ 200 mls/hr IV NOW ONE Stop: 01/14/22 19:41 Last Admin: 01/14/22 17:04 Dose: 200 mls/hr Documented By: MICHAEL Discontinued Medications Acetaminophen (Acetaminophen 325 Mg Tab) 650 mg PO NOW STA Stop: 01/14/22 13:12 Last Admin: 01/14/22 13:31 Dose: 650 mg Documented By: MICHAEL Ceftriaxone Sodium (Rocephin) 2,000 mg in 70 mls @ 140 mls/hr IV NOW STA Stop: 01/14/22 13:40 Last Infusion: 01/14/22 14:06 Dose: 0 mls/hr Documented By: Admin: 01/14/22 13:31 Dose: 140 mls/hr Documented By: MICHAEL Sodium Chloride (Nss 1000ml) 1,000 mls @ 999 mls/hr IV .Q1H1M ONE Stop: 01/14/22 14:11 Last Infusion: 01/14/22 14:47 Dose: 0 mls/hr Documented By: Admin: 01/14/22 13:31 Dose: 999 mls/hr Documented By: MICHAEL Medical Decision Making Differential Diagnosis Abscess, viral illness, UTI, pneumonia, situs, COVID, electrolyte or metabolic Medical Records Attestation: I reviewed the patient's medical records. Home Medications Current Medication List: was personally reviewed by me Laboratory Data Attestation: I reviewed the patient's lab results. Result diagrams: 01/14/22 12:12 01/14/22 12:12 Lab Results 01/14/22 01/14/22 01/14/22 Range/Units 12:12 12:12 12:12 WBC 17.23 H (4.8-10.8) K/ul RBC 5.36 (4.63-6.08) M/uL Hgb 16.1 (14.0-18.0) g/dl Hct 47.1 (40.1-51.0) % MCV 87.9 (80.0-100.0) fL MCH 30.0 (25.0-34.0) pg MCHC 34.2 (32.0-36.0) g/dL RDW Std Deviation 39.9 (36.4-46.3) fL RDW Coeff of Alena 12.3 (11.5-14.5) % Plt Count 249 (130-400) K/uL MPV 10.9 (9.4-12.4) fL Immature Gran % (Auto) 0.3 % Neut % (Auto) 84.3 % Lymph % (Auto) 8.8 % [place] % (Auto) 6.1 % Eos % (Auto) 0.2 % Baso % (Auto) 0.3 % Neut # (Auto) 14.53 H (1.4-6.5) K/uL Lymph # (Auto) 1.51 (1.2-3.4) K/uL [place] # (Auto) 1.05 H (0.24-0.82) K/uL Eos # (Auto) 0.03 (0-0.50) K/uL Baso # (Auto) 0.05 (0-0.2) K/uL Immature Gran # (Auto) 0.06 H (0.00-0.02) K/uL Sodium 132 L (136-145) mmol/L Potassium 4.3 (3.5-5.1) mmol/L Chloride 97 L (98-107) mmol/L Carbon Dioxide 26 (21-32) mmol/L Anion Gap 9 (3-11) BUN 12 (6-23) mg/dl Creatinine 0.94 (0.6-1.4) mg/dl Est Cr Clr Drug Dosing 88.6 ml/min Est GFR ( Amer) 101.7 ml/min Est GFR (Non-Af Amer) 87.8 ml/min BUN/Creatinine Ratio 12.8 (10-20) Glucose 94 (70-99(Fasting)) mg/dl Osmolality (280-300) mOsm/kg Lactate 1.1 (0.4-2.0) mmol/L Calcium 9.4 (8.5-10.1) mg/dl Total Bilirubin 0.7 (0.2-1.0) mg/dl AST 19 (13-39) U/L ALT 26 (7-52) U/L Alkaline Phosphatase 67 (34-104) U/L Total Protein 8.0 (6.0-8.3) gm/dl Albumin 4.3 (3.4-5.0) gm/dl Globulin 3.7 (2.5-4.0) gm/dl Albumin/Globulin Ratio 1.2 (0.9-2) Procalcitonin (0-0.5) ng/ml Urine Color Urine Appearance (Clear) Urine pH (4.5-7.5) Ur Specific [place] (1.000-1.030) Urine Protein (Negative) Urine Glucose (UA) (Negative) Urine Ketones (Negative) Urine Blood (Negative) Urine Nitrite (Negative) Urine Bilirubin (Negative) Urine Urobilinogen (Negative) Ur Leukocyte Esterase (Negative) Urine WBC (Auto) (0-5) /hpf Urine RBC (Auto) (0-4) /hpf U Hyaline Cast (Auto) (0-5) /lpf U Epithel Cells (Auto) (0-5) /lpf Urine Bacteria (Auto) (Negative) Urine Osmolality (500-800) mOsm/kg Ur Random Sodium mmol/L Anaplasma Smear Lyme Disease IgG Ab (Negative) Lyme Disease IgM Ab (Negative) 01/14/22 01/14/22 01/14/22 Range/Units 12:12 12:12 12:12 WBC (4.8-10.8) K/ul RBC (4.63-6.08) M/uL Hgb (14.0-18.0) g/dl Hct (40.1-51.0) % MCV (80.0-100.0) fL MCH (25.0-34.0) pg MCHC (32.0-36.0) g/dL RDW Std Deviation (36.4-46.3) fL RDW Coeff of Alena (11.5-14.5) % Plt Count (130-400) K/uL MPV (9.4-12.4) fL Immature Gran % (Auto) % Neut % (Auto) % Lymph % (Auto) % [place] % (Auto) % Eos % (Auto) % Baso % (Auto) % Neut # (Auto) (1.4-6.5) K/uL Lymph # (Auto) (1.2-3.4) K/uL [place] # (Auto) (0.24-0.82) K/uL Eos # (Auto) (0-0.50) K/uL Baso # (Auto) (0-0.2) K/uL Immature Gran # (Auto) (0.00-0.02) K/uL Sodium (136-145) mmol/L Potassium (3.5-5.1) mmol/L Chloride (98-107) mmol/L Carbon Dioxide (21-32) mmol/L Anion Gap (3-11) BUN (6-23) mg/dl Creatinine (0.6-1.4) mg/dl Est Cr Clr Drug Dosing ml/min Est GFR ( Amer) ml/min Est GFR (Non-Af Amer) ml/min BUN/Creatinine Ratio (10-20) Glucose (70-99(Fasting)) mg/dl Osmolality (280-300) mOsm/kg Lactate (0.4-2.0) mmol/L Calcium (8.5-10.1) mg/dl Total Bilirubin (0.2-1.0) mg/dl AST (13-39) U/L ALT (7-52) U/L Alkaline Phosphatase (34-104) U/L Total Protein (6.0-8.3) gm/dl Albumin (3.4-5.0) gm/dl Globulin (2.5-4.0) gm/dl Albumin/Globulin Ratio (0.9-2) Procalcitonin 0.09 (0-0.5) ng/ml Urine Color Yellow Urine Appearance Clear (Clear) Urine pH 5.5 (4.5-7.5) Ur Specific [place] 1.016 (1.000-1.030) Urine Protein Negative (Negative) Urine Glucose (UA) Negative (Negative) Urine Ketones Negative (Negative) Urine Blood Trace H (Negative) Urine Nitrite Negative (Negative) Urine Bilirubin Negative (Negative) Urine Urobilinogen Negative (Negative) Ur Leukocyte Esterase 2+ H (Negative) Urine WBC (Auto) >30 H (0-5) /hpf Urine RBC (Auto) 0-4 (0-4) /hpf U Hyaline Cast (Auto) 0 (0-5) /lpf U Epithel Cells (Auto) 5-10 H (0-5) /lpf Urine Bacteria (Auto) Negative (Negative) Urine Osmolality (500-800) mOsm/kg Ur Random Sodium mmol/L Anaplasma Smear See Comment Lyme Disease IgG Ab Negative (Negative) Lyme Disease IgM Ab Negative (Negative) 01/14/22 01/14/22 01/14/22 Range/Units 12:12 12:12 12:21 WBC (4.8-10.8) K/ul RBC (4.63-6.08) M/uL Hgb (14.0-18.0) g/dl Hct (40.1-51.0) % MCV (80.0-100.0) fL MCH (25.0-34.0) pg MCHC (32.0-36.0) g/dL RDW Std Deviation (36.4-46.3) fL RDW Coeff of Alena (11.5-14.5) % Plt Count (130-400) K/uL MPV (9.4-12.4) fL Immature Gran % (Auto) % Neut % (Auto) % Lymph % (Auto) % [place] % (Auto) % Eos % (Auto) % Baso % (Auto) % Neut # (Auto) (1.4-6.5) K/uL Lymph # (Auto) (1.2-3.4) K/uL [place] # (Auto) (0.24-0.82) K/uL Eos # (Auto) (0-0.50) K/uL Baso # (Auto) (0-0.2) K/uL Immature Gran # (Auto) (0.00-0.02) K/uL Sodium (136-145) mmol/L Potassium (3.5-5.1) mmol/L Chloride (98-107) mmol/L Carbon Dioxide (21-32) mmol/L Anion Gap (3-11) BUN (6-23) mg/dl Creatinine (0.6-1.4) mg/dl Est Cr Clr Drug Dosing ml/min Est GFR ( Amer) ml/min Est GFR (Non-Af Amer) ml/min BUN/Creatinine Ratio (10-20) Glucose (70-99(Fasting)) mg/dl Osmolality 276 L (280-300) mOsm/kg Lactate (0.4-2.0) mmol/L Calcium (8.5-10.1) mg/dl Total Bilirubin (0.2-1.0) mg/dl AST (13-39) U/L ALT (7-52) U/L Alkaline Phosphatase (34-104) U/L Total Protein (6.0-8.3) gm/dl Albumin (3.4-5.0) gm/dl Globulin (2.5-4.0) gm/dl Albumin/Globulin Ratio (0.9-2) Procalcitonin (0-0.5) ng/ml Urine Color Urine Appearance (Clear) Urine pH (4.5-7.5) Ur Specific [place] (1.000-1.030) Urine Protein (Negative) Urine Glucose (UA) (Negative) Urine Ketones (Negative) Urine Blood (Negative) Urine Nitrite (Negative) Urine Bilirubin (Negative) Urine Urobilinogen (Negative) Ur Leukocyte Esterase (Negative) Urine WBC (Auto) (0-5) /hpf Urine RBC (Auto) (0-4) /hpf U Hyaline Cast (Auto) (0-5) /lpf U Epithel Cells (Auto) (0-5) /lpf Urine Bacteria (Auto) (Negative) Urine Osmolality 624 (500-800) mOsm/kg Ur Random Sodium 155 mmol/L Anaplasma Smear Lyme Disease IgG Ab (Negative) Lyme Disease IgM Ab (Negative) Imaging Data Attestation: I personally reviewed and interpreted this imaging study as follows: My Impression: Chest x-rayno acute infiltrate, failure, pneumothorax seen Radiologist's Impression: Abdomen/Pelvis CT 01/14/22 13:17 CT abd pelvis wo con CLINICAL HISTORY: Pain when urinating COMPARISON STUDY: 01/09/2018 CT DOSE: 785.83 mGycm TECHNIQUE: Standard CT of the Abdomen and Pelvis was performed without IV contrast. The patient did not receive oral contrast. A dose lowering technique was utilized adhering to the principles of ALARA. FINDINGS: Lung base: The lung bases are clear. Abdominal cavity: There is no evidence for abdominal mass, adenopathy or ascites. Liver: The liver is homogeneous in attenuation on these limited noncontrast images.. Spleen: The spleen is homogeneous in attenuation on these limited noncontrast images. Pancreas: The pancreas is homogeneous in attenuation on these limited noncontrast images. Gall Bladder: The gallbladder is well distended with cholelithiasis. There is no CT evidence for acute cholecystitis. Adrenal glands: The adrenal glands are normal in size and attenuation on these limited noncontrast images. Kidneys: The kidneys are homogeneous in attenuation on these limited noncontrast images. There is no evidence for gross renal mass, calculus or hydronephrosis bilaterally. 2 sharply defined renal cysts are again seen on the right. Chronic bilateral perinephric stranding is present. Bowel: The bowel loops are normally placed within the abdomen and pelvis without evidence for dilatation or obstruction. There is no evidence for mass lesion. There is diverticulosis of the descending and sigmoid colon without evidence for diverticulitis. There are no inflammatory changes present. There is no evidence for free air. Bladder: There is distention of the bladder with no evidence for focal bladder wall thickening, calculus or diverticulum. Diffuse thickening of bladder wall is present characteristic of chronic bladder outlet obstruction. : There is no evidence for pelvic mass or adenopathy. The prostate is moderately to markedly enlarged. Vasculature: There is no evidence for focal aneurysmal dilatation of the abdomi nal aorta. Atherosclerotic calcification is present. Osseous structures: There is no acute osseous pathology. Degenerative changes are seen within the spine. IMPRESSION: 1. No evidence for renal calculus or hydronephrosis bilaterally. 2. Moderate to marked prostate enlargement with secondary findings of chronic bladder outlet obstruction. 3. Diverticulosis without evidence for diverticulitis. 4. Cholelithiasis with no CT evidence for acute cholecystitis. 5. Additional nonacute findings are delineated above. ACT 112: Negative or not required by law. Electronically signed by: Wilberto Delgado M.D. 01/14/2022 1:57 PM Chest X-Ray 01/14/22 14:29 XR chest 1V portable CLINICAL HISTORY: fever. COMPARISON STUDY: No previous studies for comparison. TECHNIQUE: 1 view of the chest FINDINGS: Single frontal view of the chest demonstrates the cardiomediastinal silhouette to be within normal limits. There is a decreased inspiratory effort with elevation of the hemidiaphragms and crowding of the bronchovascular markings at the lung bases and centrally. The lungs are clear of alveolar opacities. There is no evidence for pleural effusion. There is no evidence for vascular congestion. There is no acute osseous pathology. IMPRESSION: 1. There is a decreased inspiratory effort with otherwise no acute chest disease. ACT 112: Negative or not required by law. Electronically signed by: Wilberto Delgado M.D. 01/14/2022 3:04 PM MDM Narrative This patient comes in as described above. He was placed in room C7. he had a full sepsis type work-up his white count came back elevated 17 his urine looks infected as well. IV access was established he was hydrated with a 1 L IV normal saline bolus. He was given Rocephin 2 g IV. His lactic acid is not elevated. He does have bilateral olecranon swelling but neither appear to be red or fluctuant or acutely infected. Tickborne illness studies were ordered as well. Given his UTI I did order a noncontrast CT to evaluate for possible obstructive uropathy. No evidence for acute findings on the CT. His urinalysis does suggest a UTI he did receive 2 g of IV Rocephin. he is doing better he did have an enlarged prostate seen but he does appear to be emptying his bladder and I did approach with void residual that was about 125 cc. He adamantly declines a COVID test. I talked to him at length about this but he still declines. When he got up and went to the bathroom very nauseated and received some Zofran. I do think he needs to be admitted/observed given his high white count and urinary symptoms and prostate issues. He clinically has no significant flank tenderness to suggest pyelonephritis at this point. Discussed the case with the [facility] hospitalist who saw him in the ER for these measures. Impression & Plan SIRS (systemic inflammatory response syndrome), Swelling of right elbow, Leukocytosis, Acute UTI (urinary tract infection) Discharge Plan Visit Data Chief Complaint: Elbow Injury/Pain Stated Complaint: SWOLLEN ELBOW ED Provider: Max Lopez Discharge Problem: SIRS (systemic inflammatory response syndrome), Swelling of right elbow, Leukocytosis, Acute UTI (urinary tract infection) : Leukocytosis Qualifiers: Leukocytosis type: unspecified Qualified Code(s): D72.829 - Elevated white blood cell count, unspecified
[2022-01-14 13:30] LABS: Procalcitonin 0.09 ng/ml (0-0.5)
[2022-01-14 13:38] LABS: Lyme Ab IgG w/WB Rflx Negative (Negative); Lyme Ab IgM w/WB Rflx Negative (Negative)
--- NOTE | 2022-01-14 13:58 | CT Scan Report ---
CT abd pelvis wo con CLINICAL HISTORY: Pain when urinating COMPARISON STUDY: 01/09/2018 CT DOSE: 785.83 mGycm TECHNIQUE: Standard CT of the Abdomen and Pelvis was performed without IV contrast. The patient did not receive oral contrast. A dose lowering technique was utilized adhering to the principles of TAMIA Marin FINDINGS: Lung base: The lung bases are clear. Abdominal cavity: There is no evidence for abdominal mass, adenopathy or ascites. Liver: The liver is homogeneous in attenuation on these limited noncontrast images.. Spleen: The spleen is homogeneous in attenuation on these limited noncontrast images. Pancreas: The pancreas is homogeneous in attenuation on these limited noncontrast images. Gall Bladder: The gallbladder is well distended with cholelithiasis. There is no CT evidence for acut e cholecystitis. Adrenal glands: The adrenal glands are normal in size and attenuation on these limited noncontrast im ages. Kidneys: The kidneys are homogeneous in attenuation on these limited noncontrast images. There is no evidence for gross renal mass, calculus or hydronephrosis bilaterally. 2 sharply defined renal cysts are again seen on the right. Chronic bilateral perinephric stranding is present. Bowel: The bowel loops are normally placed within the abdomen and pelvis without evidence for dilatat ion or obstruction. There is no evidence for mass lesion. There is diverticulosis of the descending a nd sigmoid colon without evidence for diverticulitis. There are no inflammatory changes present. Ther e is no evidence for free air. Bladder: There is distention of the bladder with no evidence for focal bladder wall thickening, calcu abraham or diverticulum. Diffuse thickening of bladder wall is present characteristic of chronic bladder outlet obstruction. : There is no evidence for pelvic mass or adenopathy. The prostate is moderately to markedly enlarg ed. Vasculature: There is no evidence for focal aneurysmal dilatation of the abdominal aorta. Atheroscler otic calcification is present. Osseous structures: There is no acute osseous pathology. Degenerative changes are seen within the spi ne. IMPRESSION: 1. No evidence for renal calculus or hydronephrosis bilaterally. 2. Moderate to marked prostate enlargement with secondary findings of chronic bladder outlet obstruct ion. 3. Diverticulosis without evidence for diverticulitis. 4. Cholelithiasis with no CT evidence for acute cholecystitis. 5. Additional nonacute findings are delineated above. ACT 112: Negative or not required by law. Electronically signed by: Wilberto Delgado M.D. 01/14/2022 1:57 PM
--- NOTE | 2022-01-14 15:05 | XRay Report ---
XR chest 1V portable CLINICAL HISTORY: fever. COMPARISON STUDY: No previous studies for comparison. TECHNIQUE: 1 view of the chest FINDINGS: Single frontal view of the chest demonstrates the cardiomediastinal silhouette to be within normal li mits. There is a decreased inspiratory effort with elevation of the hemidiaphragms and crowding of th e bronchovascular markings at the lung bases and centrally. The lungs are clear of alveolar opacities . There is no evidence for pleural effusion. There is no evidence for vascular congestion. There is n o acute osseous pathology. IMPRESSION: 1. There is a decreased inspiratory effort with otherwise no acute chest disease. ACT 112: Negative or not required by law. Electronically signed by: Wilberto Delgado M.D. 01/14/2022 3:04 PM
--- NOTE | 2022-01-14 16:29 | History & Physical Report ---
Date of Service January 14, 2022 Assessment & Plan (1) SIRS (systemic inflammatory response syndrome): (2) Fever: (3) Swelling of right elbow: (4) Leukocytosis: (5) Tobacco abuse: Plan This is a 61 yr old M who has prior hx of Hepatitis C but did not receive treatment and appendectomy who presents to ED due to joint pain, ill feeling and burning when he pees x 1 week. Pt meets SIRS criteria based on CMS guidelines with fever and leukocytosis. Lactate and procalcitonin WNL. Blood and urine cultures obtained. He received IV rocephin. Source: Unknown, possible urine vs R elbow olecranon bursitis (although no redness or pain) Pt is refusing all COVID and viral swab testing. He will therefore be a PUI throughout admission. SIRS Fever Leukocytosis R olecranon bursitis admit to [facility] continue empiric broad spectrum IV antibiotics with IV rocephin and vancomycin possible source is UTI (pt does c/o dysuria), or R elbow ( although less likely given no redness and warmth but pt does have a bursitis) he denies any respiratory or GI symptoms gentle IVF x 1 L consult ortho to eval elbow fever could possible be of viral etiology but pt refusing further testing pt to remain PUI Hepatitis C dx many years ago pt skeptical of dx, never received treatment lfts normal Hyponatremia pt receiving IVF he denies any significant alcohol use will order approp urine/osm studies Tobacco abuse pt smokes 1ppd x 45 years declines nicotine patch currently encourage smoking cessation DVT ppx: SQ Lovenox Dispo: [facility] PCP: none, recommend establishing as outpt FULL CODE Pt was seen and examined in collaboration with Dr. Quick, please see addendum History of Present Illness Chief Complaint: ill feeling x 1 week. Primary Care Provider: NO PCP This is a 61 yr old M who has prior hx of Hepatitis C but did not receive treatment and appendectomy who presents to ED due to joint pain, ill feeling and burning when he pees x 1 week. He states he has had elbow pain in the past but has noticed more swelling in the past week. He also complains of burning when he pees but denies any blood in urine. He complains of feeling feverish and slight frontal headache. He denies any cough, sob, sinus congestion, rhinorrhea, sore throat, chills, sweats, change in taste or smell, back pain, n/v/d, abd pain, hematuria, melena and hematochezia. He states 3 days ago his horse knocked him into a post and he has R shoulder pain. In ED patient met SIRS criteria secondary to fever and leukocytosis. He otherwise remained hemodynamically stable. Lab work notable for WBC 17.23, sodium 132, chloride 97, lactic acid and procalcitonin WNL. Urinalysis did reveal +2 leukocyte esterase and greater than 30 WBCs but negative bacteria. Lyme screen negative, Anaplasma pending. Chest x-ray negative for acute abnormality. CT abdomen pelvis revealed moderate to marked breast enlargement with secondary findings of chronic bladder L obstruction but no acute pathology. Allergies Allergy/AdvReac Type Severity Reaction Status Date / Time No Known Allergies Allergy Verified 01/14/22 15:31 Home Medications Medication Instructions Recorded Confirmed Type No Known Home Medications 01/14/22 01/14/22 History Past Med/Surg History Medical History (Updated 01/14/22 @ 19:37 by Max Lopez MD) Hepatitis C Surgical History (Updated 01/14/22 @ 16:21 by Emilie Mccrary PA-C) History of appendectomy Family History (Updated 01/14/22 @ 16:30 by Emilie Mccrary PA-C) Father Prostate cancer Mother Alive and well Social History (Updated 01/14/22 @ 16:22 by Emilie Mccrary PA-C) Smoking Status: Current every day smoker packs per day: 1; Years Smoked: 45; Hx Alcohol Use: Yes Alcohol Intake Frequency: Monthly or Less Alcohol Intake Frequency Comment: very in frequent, few times a year Hx Substance Use: No Preferred Language: Kazakh Feels Safe at Home: Yes Review of Systems Review of Systems: All systems reviewed & are unremarkable except as noted in HPI & below Physical Exam Physical Exam: please refer to Dr. Quick addendum for physical exam findings Results & Data Results & Data ([facility]) Vital Signs (Past 12 Hours) Vital Signs Temp Pulse Pulse Resp BP BP Pulse Ox 01/14/22 15:44 38.4 C H 85 20 124/61 93 01/14/22 13:00 87 18 137/73 95 01/14/22 11:56 38.4 C H 99 H 18 145/66 H 96 O2 Del Method 01/14/22 15:44 Room Air 01/14/22 13:00 Room Air 01/14/22 11:56 Room Air Diagnostic Findings Abdomen/Pelvis CT 01/14/22 13:17 CT abd pelvis wo con CLINICAL HISTORY: Pain when urinating COMPARISON STUDY: 01/09/2018 CT DOSE: 785.83 mGycm TECHNIQUE: Standard CT of the Abdomen and Pelvis was performed without IV contrast. The patient did not receive oral contrast. A dose lowering technique was utilized adhering to the principles of ALARA. FINDINGS: Lung base: The lung bases are clear. Abdominal cavity: There is no evidence for abdominal mass, adenopathy or ascites. Liver: The liver is homogeneous in attenuation on these limited noncontrast images.. Spleen: The spleen is homogeneous in attenuation on these limited noncontrast images. Pancreas: The pancreas is homogeneous in attenuation on these limited noncontrast images. Gall Bladder: The gallbladder is well distended with cholelithiasis. There is no CT evidence for acute cholecystitis. Adrenal glands: The adrenal glands are normal in size and attenuation on these limited noncontrast images. Kidneys: The kidneys are homogeneous in attenuation on these limited noncontrast images. There is no evidence for gross renal mass, calculus or hydronephrosis bilaterally. 2 sharply defined renal cysts are again seen on the right. Chronic bilateral perinephric stranding is present. Bowel: The bowel loops are normally placed within the abdomen and pelvis without evidence for dilatation or obstruction. There is no evidence for mass lesion. There is diverticulosis of the descending and sigmoid colon without evidence for diverticulitis. There are no inflammatory changes present. There is no evidence for free air. Bladder: There is distention of the bladder with no evidence for focal bladder wall thickening, calculus or diverticulum. Diffuse thickening of bladder wall is present characteristic of chronic bladder outlet obstruction. : There is no evidence for pelvic mass or adenopathy. The prostate is moderately to markedly enlarged. Vasculature: There is no evidence for focal aneurysmal dilatation of the abdominal aorta. Atherosclerotic calcification is present. Osseous structures: There is no acute osseous pathology. Degenerative changes are seen within the spine. IMPRESSION: 1. No evidence for renal calculus or hydronephrosis bilaterally. 2. Moderate to marked prostate enlargement with secondary findings of chronic bladder outlet obstruction. 3. Diverticulosis without evidence for diverticulitis. 4. Cholelithiasis with no CT evidence for acute cholecystitis. 5. Additional nonacute findings are delineated above. ACT 112: Negative or not required by law. Electronically signed by: Wilberto Delgado M.D. 01/14/2022 1:57 PM Chest X-Ray 01/14/22 14:29 XR chest 1V portable CLINICAL HISTORY: fever. COMPARISON STUDY: No previous studies for comparison. TECHNIQUE: 1 view of the chest FINDINGS: Single frontal view of the chest demonstrates the cardiomediastinal silhouette to be within normal limits. There is a decreased inspiratory effort with elevation of the hemidiaphragms and crowding of the bronchovascular markings at the lung bases and centrally. The lungs are clear of alveolar opacities. There is no evidence for pleural effusion. There is no evidence for vascular congestion. There is no acute osseous pathology. IMPRESSION: 1. There is a decreased inspiratory effort with otherwise no acute chest disease. ACT 112: Negative or not required by law. Electronically signed by: Wilberto Delgado M.D. 01/14/2022 3:04 PM Medications Administered Medication List Discontinued Medications Acetaminophen (Acetaminophen 325 Mg Tab) 650 mg PO NOW STA Stop: 01/14/22 13:12 Last Admin: 01/14/22 13:31 Dose: 650 mg Documented By: MICHAEL Ceftriaxone Sodium (Rocephin) 2,000 mg in 70 mls @ 140 mls/hr IV NOW STA Stop: 01/14/22 13:40 Last Infusion: 01/14/22 14:06 Dose: 0 mls/hr Documented By: Admin: 01/14/22 13:31 Dose: 140 mls/hr Documented By: MICHAEL Sodium Chloride (Nss 1000ml) 1,000 mls @ 999 mls/hr IV .Q1H1M ONE Stop: 01/14/22 14:11 Last Infusion: 01/14/22 14:47 Dose: 0 mls/hr Documented By: Admin: 01/14/22 13:31 Dose: 999 mls/hr Documented By: MICHAEL COVID-19 Results Results COVID-19 Adm Lab Results: RBC 5.36 M/uL (4.63-6.08) 01/14/22 WBC 17.23 K/ul (4.8-10.8) H 01/14/22 Hgb 16.1 g/dl (14.0-18.0) 01/14/22 Hct 47.1 % (40.1-51.0) 01/14/22 Plt Count 249 K/uL (130-400) 01/14/22 Neutrophils (%) (Auto) 84.3 % 01/14/22 Lymphocytes (%) (Auto) 8.8 % 01/14/22 Monocytes # (Auto) 1.05 K/uL (0.24-0.82) H 01/14/22 Eosinophils # (Auto) 0.03 K/uL (0-0.50) 01/14/22 Immature Granulocyte % (Auto) 0.3 % 01/14/22 Neutrophils # (Auto) 14.53 K/uL (1.4-6.5) H 01/14/22 Lymphocytes # (Auto) 1.51 K/uL (1.2-3.4) 01/14/22 Monocytes # (Auto) 1.05 K/uL (0.24-0.82) H 01/14/22 Eosinophils # (Auto) 0.03 K/uL (0-0.50) 01/14/22 Basophils # (Auto) 0.05 K/uL (0-0.2) 01/14/22 Immature Granulocyte # (Auto) 0.06 K/uL (0.00-0.02) H 01/14 Na 132 mmol/L (136-145) L 01/14/22 K 4.3 mmol/L (3.5-5.1) 01/14/22 Cl 97 mmol/L (98-107) L 01/14/22 CO2 26 mmol/L (21-32) 01/14/22 Anion Gap 9 (3-11) 01/14/22 BUN 12 mg/dl (6-23) 01/14/22 Creatinine 0.94 mg/dl (0.6-1.4) 01/14/22 BUN/Creatinine Ratio 12.8 (10-20) 01/14/22 Glucose Level 94 mg/dl (70-99(Fasting)) 01/14/22 Ca 9.4 mg/dl (8.5-10.1) 01/14/22 Total Bilirubin 0.7 mg/dl (0.2-1.0) 01/14/22 AST/SGOT 19 U/L (13-39) 01/14/22 ALT/SGPT 26 U/L (7-52) 01/14/22 Alkaline Phosphatase 67 U/L (34-104) 01/14/22 Total Protein 8.0 gm/dl (6.0-8.3) 01/14/22 Albumin 4.3 gm/dl (3.4-5.0) 01/14/22 Globulin 3.7 gm/dl (2.5-4.0) 01/14/22 Albumin/Globulin Ratio 1.2 (0.9-2) 01/14/22 Procalcitonin 0.09 ng/ml (0-0.5) 01/14/22 Chest X-Ray 01/14/22 Code Status & VTE Plan Code Status FULL CODE VTE Prophylaxis Plan VTE Prophylaxis will be ordered: Yes Supervising Physician Co-Signing Physician Notes Attending Addendum: care coordinated with KEVIN Mccrary please refer to her notes for full details, I agree with her notes patient seen and examined, records reviewed by myself as well on exam, patient seen resting in bed, comfortable, not in distress reports mild R elbow discomfort and dysuria no cough, shortness of breath, sore throat no other symptoms VS noted and reviewed General- oriented x 3, not in distress, speaks in sentences with no effort or accessory muscle use Head- atraumatic Eyes- PERRL, EOMI, anicteric ENT- oropharynx clear Neck- supple, no JVD, no adenopathy, no thyromegaly; carotids +2/2, no bruits appreciated Lungs- clear to auscultation bilaterally, no rales/wheezes Heart- normal rate, regular rhythm; no murmur, no gallop, no rub appreciated Abdomen- normal bowel sounds, nondistended, soft, nontender, no masses or hepatosplenomegaly Extremities- R elbow: fluctuant mass on the right elbow, moderate erythema, mild tenderness, full ROM no pretibial edema, no calf tenderness; peripheral pulses intact Neuro- alert, oriented x 3; CN 2-12 grossly intact; motor 5/5 bilaterally;sensation 100% on all extremities; no other gross focal neurologic deficits Skin- warm & dry ASSESSMENT AND PLAN FEVER, POSSIBLE ETIOLOGY: RIGHT ELBOW INFECTION, INFECTED BURSITIS? blood cultures Ortho consult IV Vanco + Ceftri UTI urine culture abx per above patient adamantly declines respiratory panel including COVID despite explanation of risks involved including missing the diagnosis, appropriate treatment and possible complications- worsening medical condition he verbalizes understanding and agreement of risks involved continue COVID isolation for now other diagnoses and plan of care as per KEVIN Mccrary's notes plan of care discussed with patient in detail and at length all questions answered he is understanding, agreeable, comfortable with the plan of care Satish Quick MD
[2022-01-14] MEDS ORDERED: VANCOMYCIN CONSULT ACTIVE PRN (16:38)
[2022-01-14] MEDS ORDERED: VANCOMYCIN HCL 2,000 MG in SODIUM CHLORIDE 0.9% 500 ML IV ONE (17:00)
--- NOTE | 2022-01-14 19:42 | Pharmacy Report ---
Pharmacy PK ABX Note - Date of Service January 14, 2022 - Assessment and Plan Assessment 61 year old M receiving vancomycin for treatment of UTI/E cellulitis. Pertinent microbiologic data includes: N/A. Day # 1 of antimicrobial therapy. Plan Vancomycin * Loading dose: 2000 mg IV x 1 * Maintenance dose: 1000 mg IV every 12 hours * Regimen is predicted to achieve target AUC/NADIA of 400-600 mg/L.hr * will order trough based upon duration of therapy Pharmacy will continue to follow and will adjust dose/frequency as necessary. Thank you. Pharmacy has transitioned to AUC monitoring for vancomycin. AUC/NADIA is the preferred PK/PD target and is associated with decreased risk of nephrotoxicity compared to traditional trough targets.
[2022-01-14] MEDS ORDERED: MAGNESIUM HYDROXIDE SUSP 30 ML UDC PO PRN (20:47)
[2022-01-14] MEDS ORDERED: ALUMINUM/MAGNESIUM SUSP 30 ML UDC PO PRN (20:47)
[2022-01-14] MEDS ORDERED: SODIUM CHLORIDE 0.9% 1000ML 1,000 ML IV SCH (20:47)
[2022-01-14] MEDS ORDERED: ONDANSETRON INJ 2 MG/ML 2 ML VIAL IV PRN (20:47)
[2022-01-14] MEDS ORDERED: POLYETHYLENE (MIRALAX) 17 GM PACK PO PRN (20:47)
[2022-01-14] MEDS: ENOXAPARIN INJ 40 MG/0.4 ML SYR SQ SCH (23:07)
[2022-01-14] MEDS: ACETAMINOPHEN 325 MG TAB PO PRN (23:08)
[2022-01-15] MEDS ORDERED: VANCOMYCIN HCL 1,000 MG in SODIUM CHLORIDE 0.9% 250 ML IV SCH (05:00)
[2022-01-15 10:08] LABS: Basophils # (auto) 0.04 K/uL (0-0.2); Basophils % (auto) 0.3 %; Eosinophils # (auto) 0.03 K/uL (0-0.50); Eosinophils % (auto) 0.2 %; Hematocrit (blood only) 42.1 % (40.1-51.0); Hemoglobin 14.1 g/dl (14.0-18.0); Immature Granulocytes # (auto) 0.07 K/uL (0.00-0.02); Immature Granulocytes % (auto) 0.4 %; Lymphocytes # (auto) 2.09 K/uL (1.2-3.4); Lymphocytes % (auto) 13.2 %; Mean Corpuscular Hemoglobin 29.7 pg (25.0-34.0); Mean Corpuscular Hgb Conc 33.5 g/dL (32.0-36.0); Mean Corpuscular Volume 88.6 fL (80.0-100.0); Mean Platelet Volume 10.8 fL (9.4-12.4); Neutrophils # (auto) 12.49 K/uL (1.4-6.5); Neutrophils % (auto) 78.9 %; Platelet Count 174 K/uL (130-400); RDW Coefficient of Variation 12.6 % (11.5-14.5); RDW Standard Deviation 40.9 fL (36.4-46.3); Red Blood Count 4.75 M/uL (4.63-6.08); White Blood Count 15.82 K/ul (4.8-10.8)
[2022-01-15 10:31] LABS: Albumin Globulin Ratio 1.1 (0.9-2); Albumin Level 3.4 gm/dl (3.4-5.0); BUN Creatinine Ratio 12.9 (10-20); Bilirubin,Total 0.7 mg/dl (0.2-1.0); Calcium 8.3 mg/dl (8.5-10.1); Creatinine Clr Calc Pharmacy 97.3 ml/min; Est GFR (African American) 109.8 ml/min; Est GFR (Non-African American) 94.7 ml/min; Globulin 3.1 gm/dl (2.5-4.0); Potassium 3.9 mmol/L (3.5-5.1); Total Protein 6.5 gm/dl (6.0-8.3)
--- NOTE | 2022-01-15 10:49 | Orthopedic Consultation ---
Date of Consultation January 15, 2022 Assessment & Plan (1) Swelling of right elbow: Chronic right elbow bursitis. This does not appear to be a flareup of his bursitis per se. He has residual tissue formation from previous episodes. I have discussed the case with Dr. Lyons and we will get an x-ray of his right elbow. Currently he does not look like a surgical candidate. He has no obvious active infection of the right olecranon bursa. We discussed applying an Faustino wrap to the right elbow to allow for some compression to help with his increased tissue swelling. Modifying his work space to allow padding in the area where he rests his elbows would also help. We also discussed follow-up in the office for possible removal if it was continuing to bother him. We will review his xray today. Dr Lyons to see patient later today. History of Present Illness Reason for Consultation: Right olecranon bursitis Attending Physician: Damian Soto MD History of Present Illness 61-year-old male admitted last night secondary to feeling ill over the last week. On admission he was complaining of joint pain and burning on urination. Apparently this was going on for at least 1 week. Patient relates history of olecranon bursitis that he has had for quite some time. He states that he has had a bulging appearance at his elbow for going on 2 to 3 years now. 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 He also states he was having fouzia e pain over his ulnar styloid at the wrist. Currently he states that he is not having much in the way of these pains at this time. He continues to have his burning on urination. With his noted bursitis, we have been asked to see him for his right olecranon bursitis. Allergies Allergy/AdvReac Type Severity Reaction Status Date / Time No Known Allergies Allergy Verified 01/14/22 15:31 Home Medications Medication Instructions Recorded Confirmed Type No Known Home Medications 01/14/22 01/14/22 History Patient History Medical History Hepatitis C Surgical History History of appendectomy Family History Father Prostate cancer Mother Alive and well Social History Smoking Status: Current every day smoker packs per day: 1; Years Smoked: 45; Cigarettes Per Day: 1 pack a day; Hx Alcohol Use: Yes Alcohol Intake Frequency: Monthly or Less Alcohol Intake Frequency Comment: very in frequent, few times a year Hx Substance Use: No Preferred Language: Mozambican Communication Ability: Effective Deputy Fire Marshal Required: No Beliefs That Will Affect Care: None Current Living Situation: Significant Other Other Information That Helps Us Care for You: No Feels Safe at Home: Yes Safety Concerns: Feels Safe At This Time Assistive Devices: Glasses Physical Exam Physical Exam: Patient is a 61-year-old white male who appears his stated age. Alert and oriented x3. Pleasant and cooperative. No acute distress. On examination of his right upper extremity, he has a noticeable area where he has had a chronic bursitis of his olecranon for some time. This is bulbous in appearance and more so compared to the left. He has no erythema whatsoever in this area. No cellulitis of the skin. On palpation of his bursal area I cannot appreciate any fluctuance but do feel soft tissue material within the bursal area. I am able to palpate this area without causing him discomfort. He is able to take the elbow through gentle range of motion without discomfort. He also discussed that he was having pain down his arm and mostly over the right ulnar styloid. In this area he has a firm nodule over the ulnar styloid that is immobile. I can palpate this area without causing him discomfort. He has good range of motion of his right wrist without pain. Cap refills less than 2 seconds. Sensation intact of the fingers. Results & Data ([facility]) Vital Signs (Past 12 Hours) Vital Signs Temp Pulse Pulse Resp BP Pulse Ox O2 Del Method 01/15/22 08:00 36.6 C 72 14 103/63 93 Room Air 01/15/22 07:22 65 01/15/22 02:40 36.7 C 69 20 118/72 94 Room Air 01/14/22 23:05 75 01/14/22 23:14 Room Air 01/14/22 23:14 36.9 C 78 18 109/65 96 Room Air
[2022-01-15] MEDS: cefTRIAXone SODIUM 2,000 MG in DEXTROSE 5% 50 ML IV SCH (12:12)
--- NOTE | 2022-01-15 13:11 | XRay Report ---
XR elbow RT min 3V routine CLINICAL HISTORY: Right elbow pain. COMPARISON: None FINDINGS: Incidental note is made of an IV within the antecubital fossa. Alignment of the right elbo w is anatomic. There is no evidence for joint effusion. No fracture. No osseous lesion is identified. Note is made of soft tissue swelling overlying the olecranon. IMPRESSION: 1. No acute fracture or joint effusion of the right elbow. 2. Soft tissue swelling overlying the olecranon. This is nonspecific but may reflect olecranon bursit is. ACT 112: Negative or not required by law. Electronically signed by: Virgil Weinstein M.D. 01/15/2022 1:10 PM
--- NOTE | 2022-01-15 13:31 | Hospitalist Progress Note ---
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 Patient reports improvement in his burning while passing urine, has been afebrile lately. Patient reports feeling better. WBC coming down. R olecranon bursitis, likely chronic Patient complaining of some joint pain at right elbow at presentation. No erythema/tenderness/warmth at bulbous right olecranon bursa with normal range of motion. Likely not infected. 01/15 elbow x-ray x right, reviewed. Orthopedics evaluating, appreciate recommendation. Hepatitis C dx many years ago pt skeptical of dx, never received treatment lfts normal Hyponatremia: Improving. Pt denies any significant alcohol use Tobacco abuse pt smokes 1ppd x 45 years declines nicotine patch currently encourage smoking cessation DVT ppx: SQ Lovenox Dispo: med surg PCP: none, recommend establishing as outpt FULL CODE Admission and Anticipated Discharge Date Admission Date: January 14, 2022 Subjective Patient seen and examined at bedside as a follow-up of sepsis POA and UTI. Patient was walking in the room, on room air, NAD, denies any new acute events overnight. Patient reports improvement in his burning sensation while peeing, denies any pain to his right elbow/denies any redness or erythema. Patient denies any headache or dizziness or chest pain or sore throat or cough or palpitation or other review of symptoms. Patient reports eating okay and moving bowels okay. Physical Exam Physical Exam: GENERAL: Alert and oriented x3. NAD, on RA. HEENT: No pallor, no icterus. Pupils equal, round and reactive to light. Oral mucosa moist. NECK: No JVD, no neck masses. HEART: S1 and S2 heard. Regular rate and rhythm. No murmur, no gallop. RESPIRATORY SYSTEM: Normal AP diameter. No accessory muscle use. No wheezing, no crackles. ABDOMEN: Soft, bowel sounds present, nontender, no distention. CENTRAL NERVOUS SYSTEM: No facial droop. Speech is clear. Obeys simple commands. Moves extremities. EXTREMITIES: No edema, no erythema seen. Rt elbow bulbous olecranon bursa w/ no erythema/tenderness/warmth Results & Data Results & Data ([facility]) Vital Signs (Past 12 Hours) Vital Signs Temp Pulse Pulse Resp BP Pulse Ox O2 Del Method 01/15/22 12:14 36.8 C 74 14 108/67 96 Room Air 01/15/22 08:00 36.6 C 72 14 103/63 93 Room Air 01/15/22 07:22 65 01/15/22 02:40 36.7 C 69 20 118/72 94 Room Air (1) Leukocytosis Leukocytosis type: unspecified Qualified Code(s): D72.829 - Elevated white blood cell count, unspecified
[2022-01-15] MEDS: ACETAMINOPHEN 325 MG TAB PO PRN (19:37)
[2022-01-15] MEDS: ENOXAPARIN INJ 40 MG/0.4 ML SYR SQ SCH (21:50)
[2022-01-16 07:08] LABS: Hematocrit (blood only) 44.7 % (40.1-51.0); Hemoglobin 15.2 g/dl (14.0-18.0); Mean Corpuscular Hemoglobin 29.9 pg (25.0-34.0); Mean Corpuscular Volume 87.8 fL (80.0-100.0); Mean Platelet Volume 10.7 fL (9.4-12.4); Platelet Count 197 K/uL (130-400); RDW Coefficient of Variation 12.3 % (11.5-14.5); RDW Standard Deviation 39.8 fL (36.4-46.3); Red Blood Count 5.09 M/uL (4.63-6.08); White Blood Count 10.71 K/ul (4.8-10.8)
[2022-01-16 07:29] LABS: BUN Creatinine Ratio 12.9 (10-20); Calcium 8.9 mg/dl (8.5-10.1); Creatinine Clr Calc Pharmacy 88.9 ml/min; Est GFR (African American) 103.1 ml/min; Est GFR (Non-African American) 88.9 ml/min; Magnesium 2.1 mg/dl (1.7-2.4); Phosphorus 3.2 mg/dl (2.5-4.9); Potassium 4.2 mmol/L (3.5-5.1)
--- NOTE | 2022-01-16 11:58 | Discharge Summary ---
Date of Service January 16, 2022 Admission HPI Per Admitting Provider This is a 61 yr old M who has prior hx of Hepatitis C but did not receive treatment and appendectomy who presents to ED due to joint pain, ill feeling and burning when he pees x 1 week. He states he has had elbow pain in the past but has noticed more swelling in the past week. He also complains of burning when he pees but denies any blood in urine. He complains of feeling feverish and slight frontal headache. He denies any cough, sob, sinus congestion, rhinorrhea, sore throat, chills, sweats, change in taste or smell, back pain, n/v/d, abd pain, hematuria, melena and hematochezia. He states 3 days ago his horse knocked him into a post and he has R shoulder pain. In ED patient met SIRS criteria secondary to fever and leukocytosis. He otherwise remained hemodynamically stable. Lab work notable for WBC 17.23, sodium 132, chloride 97, lactic acid and procalcitonin WNL. Urinalysis did reveal +2 leukocyte esterase and greater than 30 WBCs but negative bacteria. Lyme screen negative, Anaplasma pending. C hest x-ray negative for acute abnormality. CT abdomen pelvis revealed moderate to marked breast enlargement with secondary findings of chronic bladder L obstruction but no acute pathology. Admission Exam Per Admitting Provider General- oriented x 3, not in distress, speaks in sentences with no effort or accessory muscle use Head- atraumatic Eyes- PERRL, EOMI, anicteric ENT- oropharynx clear Neck- supple, no JVD, no adenopathy, no thyromegaly; carotids +2/2, no bruits appreciated Lungs- clear to auscultation bilaterally, no rales/wheezes Heart- normal rate, regular rhythm; no murmur, no gallop, no rub appreciated Abdomen- normal bowel sounds, nondistended, soft, nontender, no masses or hepatosplenomegaly Principal Diagnosis Sepsis POA UTI Chronic right olecranon bursitis Discharge Exam GENERAL: Alert and oriented x3. NAD, on RA. HEENT: No pallor, no icterus. Pupils equal, round and reactive to light. Oral mucosa moist. NECK: No JVD, no neck masses. HEART: S1 and S2 heard. Regular rate and rhythm. No murmur, no gallop. RESPIRATORY SYSTEM: Normal AP diameter. No accessory muscle use. No wheezing, no crackles. ABDOMEN: Soft, bowel sounds present, nontender, no distention. CENTRAL NERVOUS SYSTEM: No facial droop. Speech is clear. Obeys simple commands. Moves extremities. EXTREMITIES: No edema, no erythema seen. Rt elbow bulbous olecranon bursa w/ no erythema/tenderness/warmth Discharge Data Allergies Allergy/AdvReac Type Severity Reaction Status Date / Time No Known Allergies Allergy Verified 01/14/22 15:31 Consultations 01/14/22 16:01 ED Decision to Admit Stat 01/14/22 16:41 Consult Orthopedic Surgery Routine Ordered Studies 01/14/22 13:17 CT stones [CT abd pelvis wo con] Stat Hospital Course (1) Fever: (2) Swelling of right elbow: (3) Leukocytosis: (4) Tobacco abuse: Plan 61 yr old M who has prior hx of Hepatitis C but did not receive treatment and appendectomy who presents to ED 01/14 due to feeling ill 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 Later tested negative. 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 cefdinir. Admitting urine culture negative. Patient reports improvement in his burning while passing urine, patient reports feeling better, WBC normal, afebrile since last 2 days. R olecranon bursitis, likely chronic Patient complaining of some joint pain at right elbow at presentation. No erythema/tenderness/warmth at bulbous right olecranon bursa with normal range of motion. Likely not infected. 01/15 elbow x-ray x right, reviewed. Orthopedics evaluated, appreciate recommendation. Hepatitis C dx many years ago pt skeptical of dx, never received treatment lfts normal Hyponatremia: Improving. Pt denies any significant alcohol use Tobacco abuse pt smokes 1ppd x 45 years declines nicotine patch currently encourage smoking cessation Dispo: med surg PCP: none, recommend establishing as outpt FULL CODE Patient being discharged home with following instruction at the point of discharge: Follow-up with your primary care physician within a week time. Complete the course of antibiotics prescribed. You will get your IV antibiotic prior to discharge today, continue your oral antibiotic from tomorrow morning. For your right olecranon bursa, you can apply Faustino wrap to the right elbow to allow for some compression to help with increased tissue swelling. Modified work space to allow padding in the area where you rest your right elbow. If you want it to be removed, follow-up with orthopedics as an outpatient. Take your medications as prescribed. Total Time Total Time Spent Total Time Spent (In Minutes): 35 Discharge Plan Discharge Items Patient Disposition: Home - Self-Care Reason For Visit: FEVER Discharge Diagnosis: Sepsis POA UTI Chronic right olecranon bursitis Activity: Resume your previous activity Non-emergency contact: Primary Care Provider Call non-emergency contact if: you have any medication questions, your symptoms worsen and your temperature is above 101 Follow-up/Referrals: PCP,NO [Primary Care Provider] - Diet: Regular Addtl Attending Provider Instructions: Follow-up with your primary care physician within a week time. Complete the course of antibiotics prescribed. You will get your IV antibiotic prior to discharge today, continue your oral antibiotic from tomorrow morning. For your right olecranon bursa, you can apply Faustino wrap to the right elbow to allow for some compression to help with increased tissue swelling. Modified work space to allow padding in the area where you rest your right elbow. If you want it to be removed, follow-up with orthopedics as an outpatient. Take your medications as prescribed. Pending Studies at Discharge: Yes (Admitting blood culture final results.) Stand-Alone Forms: [facility] [employer] Smoking Cessation Medications and DC Order Prescriptions: New cefdinir 300 mg capsule 300 mg PO BID 5 Days Qty: 10 0RF Rx Instructions: start from 01/17/22 morning. 1 tablet twice a day. Discharge Orders: Discharge Order (Routine); Ordered 01/16/22 Ordered By: Damian Soto Admission Data Admit Date/Time: 01/14/22 16:08 Attending Provider: Damian Soto Admit Provider: Satish Quick Primary Care Provider: PCP,NO Other Providers: Satish Quick ; Robert Lyons
[2022-01-16] MEDS: cefTRIAXone SODIUM 2,000 MG in DEXTROSE 5% 50 ML IV SCH (12:10)
== END 2022-01-16 13:47 | disposition home or self-care (01) | DRG 872 ==
LOC: ED 11:26 → SUATTDRO 16:08 → EDINP 16:08 → 2W 22:33